=== PATIENT | male | born 1980 | race Caucasian/White ===

== ENCOUNTER 2017-04-04 08:44 | Emergency (ER) | payer SELFPAY ==
[~2017-04-04] VITALS: Ht 180.3 cm; Wt 124.1 kg
[~2017-04-04 08:44] MED LIST: FLEXERIL10 MG PO; MEN'S ONE DAIL1 EACH; NAPROSYN500 MG PO
[2017-04-04 09:09] LABS: ADD MIUA? YES; BILIRUBIN NEGATIVE; BLOOD NEGATIVE; COLOR AMBER ((YELLOW)); GLUCOSE (STRIP) NEGATIVE; KETONES NEGATIVE; LEUKOCYTES NEGATIVE; NITRITE NEGATIVE; PROTEIN (STRIP) 30; SPECIFIC GRAVITY 1.033 (1.000-1.030)
[2017-04-04 09:13] LABS: BACTERIA NONE SEEN /HPF; EPITHELIAL CELLS RARE /HPF; MUCUS 2+ /LPF; UCUL ADDED? NO; WHITE BLOOD CELLS 0-5 /HPF (0-5)
[2017-04-04 09:34] LABS: HEMATOCRIT 47.3 % (38.0-50.0); MCH 29.6 PG (29.0-34.0); MCHC 32.8 G/DL (30.0-36.0); MCV 90.3 FL (86-99); MEAN PLAT.VOLUME 10.2 uM^3 (9.0-12.4); PLATELET COUNT 289 K/uL (156-360); RBC DIS.WIDTH-CV 14.2 % (11.8-14.6); RBC DIS.WIDTH-SD 47.3 % (39-53); RED BLOOD COUNT 5.24 M/uL (4.00-5.50); WHITE BLOOD COUNT 8.2 K/uL (4.1-10.2)
[2017-04-04 09:44] LABS: CHLORIDE 103 mEq/L (99-109); POTASSIUM 4.2 mEq/L (3.7-5.4); SODIUM 136 mEq/L (136-147)
[2017-04-04 09:47] LABS: GLUCOSE 120 mg/dL (70-99)
[2017-04-04 09:48] LABS: ANION GAP 10 MEQ/L (2-14); TOTAL BILIRUBIN 0.6 mg/dL (0.0-1.0)
[2017-04-04 09:50] LABS: ALKALINE PHOSPHATASE 90 IU/L (3-129); GFR ESTIMATE (CALCULATED) > 59 mL/min/
[2017-04-04 09:51] LABS: UREA NITROGEN (BUN) 9 mg/dL (9-23)
[2017-04-04 10:14] LABS: LIPASE 11 U/L (1.0-51.0)
[2017-04-04] MEDS ORDERED: PERCOCET 5/31 TABLET PO (11:08)
[2017-04-04] MEDS ORDERED: FLEXERIL10 MG PO (11:08)
[2017-04-04 11:26] VITALS: BP 160/99
== END 2017-04-04 11:27 | disposition home or self-care (01) ==
LOC: EME 08:44
DX: S39.011A Strain of muscle, fascia and tendon of abdomen, initial encounter (principal); X50.0XXA Overexertion from strenuous movement or load, initial encounter; Y99.0 Civilian activity done for income or pay; K76.0 Fatty (change of) liver, not elsewhere classified; N28.1 Cyst of kidney, acquired; Z87.891 Personal history of nicotine dependence
CPT/HCPCS: 74177; 80053; 81003; 83690; 85027; 99281; 99284; J1885; J2405; J7030